=== PATIENT | male | born 1960 | race Caucasian/White ===

== ENCOUNTER 2018-09-06 17:28 | Emergency (ER) | payer SELFPAY ==
[2018-09-06] MEDS ORDERED: Ciprofloxacin 0.3% Ophth Soln 2.5 ML Bottle EYEBOTH STA (17:51)
--- NOTE | 2018-09-06 18:03 | EDM.PDOC ---
ED HPI GENERAL MEDICAL PROBLEM - General Chief Complaint: Eye Problems Stated Complaint: EYES RED AND HURTS Time Seen by Provider: 09/06/18 17:59 Source of Information: Reports: Patient History Limitations: Reports: No Limitations - History of Present Illness INITIAL COMMENTS - FREE TEXT/NARRATIVE: HISTORY AND PHYSICAL: History of present illness: Patient is a 58-year-old male who presents to the emergency room today with complaints of bilateral eye redness, irritation, and drainage. He states over the past 1 week he has noticed bilateral eye irritation which is progressively gotten worse and is now associated with drainage. He states in the mornings he has had to wipe away dried drainage from his eyelashes. States he has the sensation of wanting to constantly rub his eyes. Denies any contact or glasses use. Denies any exposure form body possibilities. No visual changes. Patient denies any fever, chills, headache, change in vision, syncope or near syncope. Denies any chest pain, back pain, shortness of breath or cough. Denies any abdominal pain, nausea, vomiting, diarrhea, constipation or dysuria. Has not noted any blood in urine or stool. Patient has been eating and drinking appropriately. Review of systems: As per history of present illness and below otherwise all systems reviewed and negative. Past medical history: As per history of present illness and as reviewed below otherwise noncontributory. Surgical history: As per history of present illness and as reviewed below otherwise noncontributory. Social history: See social history for further information Family history: As per history of present illness and as reviewed below otherwise noncontributory. Physical exam: General: Well-developed and well-nourished 58-year-old male. Alert and oriented. Nontoxic appearing and in no acute distress. HEENT: Atraumatic, normocephalic, pupils equal and reactive bilaterally, negative for conjunctival pallor or scleral icterus, bilateral scleral injection with some dried drainage noted along the lower lash line, mucous membranes moist, TMs normal bilaterally, throat clear, neck supple, nontender, trachea midline. No drooling or trismus noted. No meningeal signs. No hot potato voice noted. Lungs: Clear to auscultation, breath sounds equal bilaterally, chest nontender. Heart: S1S2, regular rate and rhythm without overt murmur Abdomen: Soft, nondistended, nontender. Skin: Intact, warm, dry. No lesions or rashes noted. Extremities: Atraumatic, moves all extremities per self without difficulty or deficits, negative for cords or calf pain. Neurovascular unremarkable. Neuro: Awake, alert, oriented. Cranial nerves II through XII unremarkable. Cerebellum unremarkable. Motor and sensory unremarkable throughout. Exam nonfocal. Notes: Upon preparing the patient for discharge he states that he is up here from [place] and his prescriptions were not able to cross over to [facility]. He does have a few diabetic medications he will run out of by Friday. He is requesting a limited amount to get him through until he returns back to [place]. Besides his main complaint is the bilateral eye redness he offers no other concerns or complaints and declines the need for any diagnostic such as lab work. Supportive care measures were reviewed and discussed. Voices understanding and is agreeable to plan of care. Denies any further questions or concerns at this time. Diagnostics: None Therapeutics: Cipro eye gtts Prescription: Cipro eye gtts Metformin (refill) Farxiga (refill) Impression: Conjunctivitis Encounter for medication refill History of type 2 diabetes Plan: 1. Use the ophthalmic drop 4 times per day x 7 - 10 days 2. Good handwashing to avoid spreading germs 3. Please follow-up with the lead cook as we discussed. Return to the ED as needed and as discussed. Definitive disposition and diagnosis as appropriate pending reevaluation and review of above. Bilateral Eye Pain Score (Numeric/FACES): 7 - Related Data Allergies Allergy/AdvReac Type Severity Reaction Status Date / Time No Known Allergies Allergy Verified 09/06/18 17:42 Home Meds: Home Meds Dapagliflozin Propanediol [Farxiga] 10 mg PO 09/06/18 [History] Dulaglutide [Trulicity] 0.75 mg SQ 09/06/18 [History] metFORMIN HCl [Metformin HCl] 1,000 mg PO 09/06/18 [History] Past Medical History Endocrine/Metabolic History: Reports: Diabetes, Type II Social & Family History - Family History Family Medical History: Noncontributory - Tobacco Use Smoking Status *Q: Never Smoker - Recreational Drug Use Recreational Drug Use: No ED ROS GENERAL - Review of Systems Review Of Systems: ROS reveals no pertinent complaints other than HPI. ED EXAM GENERAL W FULL EYE - Physical Exam Exam: See Below (See dictation) Course - Vital Signs Last Recorded V/S: Last Vital Signs Temp 97.2 F 09/06/18 17:40 Pulse 71 09/06/18 18:31 Resp 18 09/06/18 17:40 BP 138/68 09/06/18 18:31 Pulse Ox 97 09/06/18 18:31 - Orders/Labs/Meds Meds: Medications Discontinued Medications Generic Name Dose Route Start Last Admin Trade Name Markie PRN Reason Stop Dose Admin Ciprofloxacin 1 ml 09/06/18 17:51 09/06/18 18:13 Ciloxan 0.3% Ophth Soln EYEBOTH 09/06/18 17:52 Not Given NOW STA Ciprofloxacin 0 ml 09/06/18 18:05 09/06/18 18:13 Ciloxan 0.3% Ophth Soln EYEBOTH 09/06/18 18:06 1 ml NOW STA Administration Departure - Departure Time of Disposition: 18:03 Disposition: Home, Self-Care 01 Clinical Impression: Encounter for medication refill, Family history of type 2 diabetes mellitus Conjunctivitis Qualifiers: Conjunctivitis type: acute Acute conjunctivitis type: bacterial Laterality: bilateral Qualified Code(s): H10.33 - Unspecified acute conjunctivitis, bilateral - Discharge Information Instructions: Bacterial Conjunctivitis, [id number] Referrals: PCP,None [Primary Care Provider] - Forms: ED Department Discharge Additional Instructions: The following information is given to patients seen in the emergency department who are being discharged to home. This information is to outline your options for follow-up care. We provide all patients seen in our emergency department with a follow-up referral. The need for follow-up, as well as the timing and circumstances, are variable depending upon the specifics of your emergency department visit. If you don't have a primary care physician on staff, we will provide you with a referral. We always advise you to contact your personal physician following an emergency department visit to inform them of the circumstance of the visit and for follow-up with them and/or the need for any referrals to a consulting specialist. The emergency department will also refer you to a specialist when appropriate. This referral assures that you have the opportunity for follow-up care with a specialist. All of these measure are taken in an effort to provide you with optimal care, which includes your follow-up. Under all circumstances we always encourage you to contact your private physician who remains a resource for coordinating your care. When calling for follow-up care, please make the office aware that this follow-up is from your recent emergency room visit. If for any reason you are refused follow-up, please contact the [facility] Emergency Department at and asked to speak to the emergency department charge nurse. [facility] [address] [place] [id number] [facility] [address] [place] [id number] 1. Use the ophthalmic drop 4 times per day x 7 - 10 days 2. Good handwashing to avoid spreading germs 3. Please follow-up with the lead cook as we discussed. Return to the ED as needed and as discussed.
[2018-09-06] MEDS ORDERED: Ciprofloxacin 0.3% Ophth Soln 5 ML Bottle EYEBOTH STA (18:05)
== END 2018-09-06 18:31 | disposition home or self-care (01) ==
LOC: MW.ED 17:28
DX: H10.33 Unspecified acute conjunctivitis, bilateral (principal); E11.9 Type 2 diabetes mellitus without complications; Z79.84 Long term (current) use of oral hypoglycemic drugs; Z76.0 Encounter for issue of repeat prescription; Z79.899 Other long term (current) drug therapy
CPT/HCPCS: 99282; A9270